=== PATIENT | male | born 1965 | race Caucasian/White ===

== ENCOUNTER 2019-07-05 19:14 | Emergency (ER) | payer OTHER ==
[2019-07-05] MEDS ORDERED: Aspirin 81 MG Tab.Chew PO ONE (19:41)
[2019-07-05] MEDS ORDERED: Ketorolac 30 MG/ML SDV IM ONE (19:41)
--- NOTE | 2019-07-05 19:47 | EDM.PDOC ---
ED HPI GENERAL MEDICAL PROBLEM - General Chief Complaint: Cardiovascular Problem Stated Complaint: Chest pain Time Seen by Provider: 07/05/19 19:42 Source of Information: Reports: Patient History Limitations: Reports: No Limitations - History of Present Illness INITIAL COMMENTS - FREE TEXT/NARRATIVE: Presents with substernal dull chest pain since 1600, non-radiating. Symptoms improved after laying down and resting. Denies prior h/o CAD. No FMHx CAD. He is a non-smoker. Patient denies SOB, but does feel anxious. He has been under a lot of stress because his is scheduled for surgery soon. Onset: Today Duration: Hour(s): (3.5) Location: Reports: Chest Severity: Mild - Related Data Allergies Allergy/AdvReac Type Severity Reaction Status Date / Time No Known Allergies Allergy Verified 07/05/19 19:57 Home Meds: Home Meds allopurinoL [Zyloprim] 200 mg PO DAILY 07/05/19 [History] atorvaSTATin Calcium [Atorvastatin Calcium] 5 mg PO DAILY 07/05/19 [History] Past Medical History Cardiovascular History: Reports: High Cholesterol. Denies: CAD Social & Family History - Tobacco Use Tobacco Use Within Last Twelve Months: No ED ROS GENERAL - Review of Systems Review Of Systems: Comprehensive ROS is negative, except as noted in HPI. ED EXAM, GENERAL - Physical Exam Exam: See Below Exam Limited By: No Limitations General Appearance: Alert, WD/WN, No Apparent Distress Ears: Normal External Exam Nose: Normal Inspection Throat/Mouth: No Airway Compromise Head: Atraumatic, Normocephalic Neck: Full Range of Motion Respiratory/Chest: No Respiratory Distress, Lungs Clear, Normal Breath Sounds Cardiovascular: Regular Rate, Rhythm, No Murmur, Other (substernal chest wall tenderness) GI/Abdominal: Soft, Non-Tender, No Distention Extremities: Normal Range of Motion, No Pedal Edema Neurological: Alert, Normal Cognition Psychiatric: Normal Affect Skin Exam: Warm, Dry, Intact EKG INTERPRETATION EKG Date: 07/05/19 Time: 19:25 Rhythm: NSR Rate (Beats/Min): 101 [place]: Normal P-Wave: Present QRS: Other (Nonspecific intraventricular conduction delay) ST-T: Other (minimal anterolateral ST depression) Comparison: NA - No Prior EKG Course - Vital Signs Text/Narrative:: 2039: BP 148/92, HR 85, RR 13, Sa02 99% RA Last Recorded V/S: Last Vital Signs Temp 35.8 C L 07/05/19 19:15 Pulse 101 H 07/05/19 19:15 Resp 22 H 07/05/19 19:15 BP 177/99 H 07/05/19 19:15 Pulse Ox 99 07/05/19 19:15 - Orders/Labs/Meds Orders: Active Orders 24 hr Category Date Time Status EKG Documentation Completion [RC] ASDIRECTED Care 07/05/19 19:35 Active EKG 12 Lead [EK] Stat Ther 07/05/19 19:35 Ordered Labs: Laboratory Tests 07/05/19 07/05/19 07/05/19 Range/Units 19:45 19:45 19:45 WBC 10.1 (4.5-12.0) X10-3/uL RBC 5.04 (4.30-5.75) x10(6)uL Hgb 15.3 (13.5-17.8) g/dL Hct 45.4 (30.0-51.3) % MCV 90.1 (80-96) fL MCH 30.5 (27.7-33.6) pg MCHC 33.8 (32.2-35.4) g/dL RDW 13.4 (11.5-15.5) % Plt Count 334 (125-369) X10(3)uL MPV 7.6 (7.4-10.4) fL Neut % (Auto) 67.5 (46-82) % Lymph % (Auto) 23.2 (13-37) % [place] % (Auto) 7.3 (4-12) % Eos % (Auto) 1 (1.0-5.0) % Baso % (Auto) 1 (0-2) % Neut # (Auto) 6.9 (1.6-8.3) # Lymph # (Auto) 2.3 (0.6-5.0) # [place] # (Auto) 0.7 (0.0-1.3) # Eos # (Auto) 0.1 (0.0-0.8) # Baso # (Auto) 0.1 (0.0-0.2) # Sodium 142 (135-145) mmol/L Potassium 3.8 (3.5-5.3) mmol/L Chloride 105 (100-110) mmol/L Carbon Dioxide 24 (21-32) mmol/L BUN 13 (7-18) mg/dL Creatinine 1.1 (0.70-1.30) mg/dL Est Cr Clr Drug Dosing 79.27 mL/min Estimated GFR (MDRD) > 60 (>60) BUN/Creatinine Ratio 11.8 (9-20) Glucose 121 H (80-116) mg/dL Calcium 8.9 (8.6-10.2) mg/dL Total Bilirubin 0.5 (0.1-1.3) mg/dL AST 29 H (5-25) IU/L ALT 49 H (12-36) U/L Alkaline Phosphatase 137 H (56-112) IU/L Troponin I 5.5 (4.0-60.3) pg/mL Total Protein 7.8 (6.0-8.0) g/dL Albumin 4.3 (3.5-5.2) g/dL Globulin 3.5 g/dL Albumin/Globulin Ratio 1.2 Meds: Medications Discontinued Medications Generic Name Dose Route Start Last Admin Trade Name Freq PRN Reason Stop Dose Admin Aspirin 324 mg 07/05/19 19:41 07/05/19 19:48 Aspirin PO 07/05/19 19:42 324 mg ONETIME ONE Administration Ketorolac Tromethamine 30 mg 07/05/19 19:41 07/05/19 19:48 Toradol IM 07/05/19 19:42 30 mg ONETIME ONE Administration - Re-Assessments/Exams Free Text/Narrative Re-Assessment/Exam: 07/05/19 20:41 Symptoms resolved after ASA 324 mg PO and Toradol 30 mg IM. Currently pain free. Vitals have improved. Departure - Departure Time of Disposition: 20:43 Disposition: Home, Self-Care 01 Condition: Good Clinical Impression: Costochondritis, acute Instructions: Costochondritis, [id number] Forms: ED Department Discharge Additional Instructions: Take Ibuprofen as needed. Rest. Call your doctor or use Telehealth for a follow up in 3 days. Return to the ER if symptoms worsen. Sepsis Event Note - Evaluation Sepsis Screening Result: No Definite Risk - Focused Exam Vital Signs: Vital Signs Temp Pulse Resp BP Pulse Ox 07/05/19 19:15 35.8 C L 101 H 22 H 177/99 H 99 Date Exam was Performed: 07/05/19 Time Exam was Performed: 20:38 - My Orders Last 24 Hours: My Active Orders 07/05/19 19:35 EKG Documentation Completion [RC] ASDIRECTED EKG 12 Lead [EK] Stat - Assessment/Plan Last 24 Hours: My Active Orders 07/05/19 19:35 EKG Documentation Completion [RC] ASDIRECTED EKG 12 Lead [EK] Stat
== END 2019-07-05 21:05 | disposition home or self-care (01) ==
LOC: FB.ED 19:14
DX: M94.0 Chondrocostal junction syndrome [Tietze] (principal); E78.00 Pure hypercholesterolemia, unspecified; I25.10 Atherosclerotic heart disease of native coronary artery without angina pectoris; Z79.899 Other long term (current) drug therapy
CPT/HCPCS: 36415; 80053; 84484; 85025; 93005; 96372; 99285; A9270; J1885

== ENCOUNTER 2023-02-20 23:04 | Emergency (ER) | payer OTHER ==
[2023-02-20] MEDS: Metoprolol Tartrate 25 MG Tab PO ONE (23:37)
[2023-02-20 23:45] LABS: BASOPHILS ABSOLUTE AUTO 0.1 x10-3/uL (0.0-0.3); BASOPHILS PERCENT AUTO 1.1 % (0.3-3.8); EOSINOPHILS ABSOLUTE AUTO 0.5 x10-3/uL (0.0-0.6); EOSINOPHILS PERCENT AUTO 7.2 % (0.1-6.8); HEMATOCRIT 42.7 % (38.3-50.1); HEMOGLOBIN 14.6 g/dL (12.9-17.7); LYMPHOCYTES ABSOLUTE AUTO 2.2 x10-3/uL (0.5-4.5); LYMPHOCYTES PERCENT AUTO 30.3 % (15.8-45.3); MEAN CORPUSCULAR HEMOGLOBIN 31.3 pg (27.0-33.3); MEAN CORPUSCULAR HGB CONC 34.2 g/dL (28.7-35.3); MEAN CORPUSCULAR VOLUME 91.7 fL (80.8-98.7); MEAN PLATELET VOLUME 7.5 fL (6.7-11.0); MONOCYTES ABSOLUTE AUTO 0.9 x10-3/uL (0.0-1.2); MONOCYTES PERCENT AUTO 11.9 % (5.5-15.2); NEUTROPHILS ABSOLUTE AUTO 3.6 x10-3/uL (1.7-6.9); NEUTROPHILS PERCENT AUTO 49.5 % (40.3-71.8); PLATELET COUNT,PLT 327 x10(3)uL (117-477); RED BLOOD CELL COUNT 4.66 x10(6)uL (3.90-5.90); RED CELL DISTRIBUTION WIDTH 14.4 % (12.4-15.0); WHITE BLOOD CELL COUNT,WBC 7.3 x10-3/uL (3.2-10.1)
[2023-02-20 23:48] LABS: BLOOD UREA NITROGEN,BUN 25 mg/dL (7-18); CALCIUM 8.7 mg/dL (8.6-10.2); CARBON DIOXIDE,CO2 28 mmol/L (21-32); CHLORIDE,CL 103 mmol/L (100-110); ESTIMATED GFR 87 mL/min (>60); GLUCOSE RANDOM 150 mg/dL (80-116); POTASSIUM,K 3.3 mmol/L (3.5-5.3); SODIUM,NA 139 mmol/L (135-145)
[2023-02-20] MEDS: LORazepam 1 MG Tab PO ONE (23:48)
[2023-02-20 23:54] LABS: ALANINE AMINOTRANSFERASE,ALT 49 U/L (12-36); ALBUMIN 3.7 g/dL (3.5-5.2); ALKALINE PHOSPHATASE 123 IU/L (56-112); ASPARTATE AMNIOTRANSFERASE,AST 25 IU/L (5-25); BILIRUBIN TOTAL 0.4 mg/dL (0.1-1.3); MAGNESIUM 1.8 mg/dL (1.8-2.5); PROTEIN TOTAL,TP 7.5 g/dL (6.0-8.0)
[2023-02-21 00:03] LABS: TROPONIN I 5.9 pg/mL (4.0-60.3); TSH ULTRASENSITIVE 2.91 IU/mL (0.36-3.74)
[2023-02-21] MEDS: Potassium Chloride 20 MEQ Tab.ER PO ONE (00:41)
== END 2023-02-21 00:58 | disposition home or self-care (01) ==
LOC: FB.ED 23:04
DX: R00.2 Palpitations (principal); F43.0 Acute stress reaction; E86.0 Dehydration; E87.6 Hypokalemia; Z79.899 Other long term (current) drug therapy; E78.00 Pure hypercholesterolemia, unspecified
CPT/HCPCS: 36415; 80053; 83735; 84443; 84484; 85025; 93005; 93010; 99283; 99285; A9270-GY